=== PATIENT | male | born 1955 | race Caucasian/White ===

== ENCOUNTER 2016-11-29 15:13 | Outpatient (CLI) | payer OTHER ==
[~2016-11-29] VITALS: Ht 160 cm; Wt 68.2 kg
[2016-11-29 15:25] VITALS: Ht 160 cm; Wt 68.2 kg
[2016-11-29] MEDS ORDERED: METF500T4 PO (15:25)
[2016-11-29] MEDS ORDERED: FENO145T19 PO (15:25)
[2016-11-29] MEDS ORDERED: ALLO100T PO (15:25)
[2016-11-29] MEDS ORDERED: LOSA25TA5 PO (15:25)
[2016-11-29] MEDS ORDERED: ATOR40TA68 PO (15:25)
[2016-11-29] MEDS ORDERED: ASPI-664 PO (15:25)
[2016-11-29 15:26] VITALS: BP 134/77; PULSE 79; RESP 16
--- NOTE | 2016-11-29 16:44 | CONS ---
[facility] INITIAL OUTPATIENT CONSULTATION NOTE DATE OF CONSULTATION: 11/29/2016 PLACE OF SERVICE: [facility] ASSESSMENT AND PLAN: A very pleasant 61-year-old gentleman with a few comorbidities including diabetes mellitus with higher than normal hemoglobin A1c , hypertriglyceridemia, history of diverticulosis and perhaps hiatal hernia as well as known cholelithiasis, status post relatively recent upper and lower endoscopies presenting with abdominal pain of unclear etiology. I am not seeing any surgical indications for removal of his gallbladder with given information. The location of the pain is the main reason behind my recommendation, given his normal organo-axial anatomy as seen by the abdominal ultrasound. The patient does not demonstrate infection as the main reason, but he does have a possible diverticulosis per his own report. His colonoscopy has been relatively recent but I am a bit concerned about his anemia and would certainly recommend checking his stool for occult blood and perhaps reconsidering colonoscopy if indicated by that, or if indicated by consideration by Dr. Herr since his abdominal pain is not quite explained by his presentation. I also counseled him regarding the changes in his lifestyle and ways to achieve those (approximately 15 minutes spent in counseling time) including institution of consistent exercise per day as well as further refinement in choice of calories and monitoring and treatment of his diabetes. To start with, a CT scan of the abdomen and pelvis with IV and oral contrast would be indicated and I am hopeful that through your office we can check for occult blood in the stool and possible consultation with Dr. Herr or a correctional officer lieutenant who would consider repeat endoscopy if they felt it was indicated. I explained all this to the patient and his and answered all their questions to the best of my ability. I believe that the patient and his appeared to understand and agreed with the plans. With above assessment I have recommended the followin. CT scan of abdomen and pelvis with IV and oral contrast. 2. Consideration for gastroenterology consultation. 3. Consideration for upper and lower endoscopy if indicated by above. 4. Healthy changes in lifestyle, with the goal of getting the BMI between 18 to 24 as well as tighter control on diabetes with the goal of decreasing his hemoglobin A1c levels. 5. If further concern for gallbladder, to then perform a HIDA scan. 6. Evaluation of possible hiatal hernia and diverticular disease with the above -mentioned CT scan. 7. Follow up with us in about 2 to 3 weeks after above has been done in order for further planning. Thank you again for allowing us to participate in the care of this very pleasant gentleman and his wonderful family. If there are any questions, please call me at [phone]. TOTAL VISIT TIME: Forty-five minutes, of which more than half was spent in face -to-face discussion with the patient, discussions with his , as well as coordination of care between multiple physicians and providers. UPDATED CLINICAL SUMMARY: A very pleasant 61-year-old gentleman with a few comorbid issues including diabetes mellitus with latest hemoglobin A1c of 7.4, dated 11/15/2016, BMI of 26.6 and left upper quadrant abdominal pain for about a year, presenting for evaluation and management. COMORBIDITIES. 1. BMI 26.6. 2. Diabetes mellitus with hemoglobin A1c 7.4. 3. Anemia with white blood cell count 13.0 on 11/15/2016. 4. Cholelithiasis as seen on ultrasound of the abdomen 11/20/2016 without any evidence of acute cholecystitis or biliary ductal dilatation. 5. History of diverticulosis. 6. Status post colonoscopy 2014. 7. Status post upper and lower endoscopy 2011 (both with Dr. Herr). 3. Hypertriglyceridemia, (176 on 11/15/2016). Dear Dr. Butts, Thank you again for allowing us to participate in the care of Mr. Erik Ha and his wonderful family. HISTORY OF PRESENT ILLNESS: A very pleasant 61-year-old gentleman with above- mentioned comorbidities who presented for evaluation and management of abdominal pain that he describes as a chronic dull type of pain in the left upper quadrant primarily which is exacerbated by food and lasts approximately an hour after onset. It does not appear to be worsened by movement, but when he presses on his left costochondral margin, he can reproduce some of the pain. No prior history of trauma or car accidents that he remembers. No changes in appetite and in fact, has had increased oral intake per his . He reports a small decrease in the amount of stool that he has, but no blood and no change in caliber. No nausea or vomiting. He mentioned a "hernia" mentioned to him after his upper endoscopy by Dr. Herr. (? hiatal hernia), but no specific symptoms related to reflux or heartburn. No prior cardiopulmonary disease. ALLERGIES: NO KNOWN DRUG ALLERGIES. MEDICATIONS: 1. Allopurinol. 2. Aspirin. 3. Atorvastatin. 4. Fenofibrate. 5. Losartan. 6. Glucophage. SOCIAL HISTORY: The patient lives with his family and they have 3 children together and no grandchildren. 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 No significant smoking, no major drinking and no intravenous drug use reported. FAMILY HISTORY: Patient's sister is a breast cancer survivor in her 70s, was the diagnosis. No other major medical, surgical or oncologic problems reported in the family. REVIEW OF SYSTEMS: Other than the above-mentioned, there are no other pertinent positives or pertinent negatives in a complete 14-point review of systems. PHYSICAL EXAMINATION: GENERAL: The patient appears to be a very pleasant [place] gentleman of non- descent, appearing stated age, sitting in a chair comfortably and in no acute distress. BMI 26.6. VITAL SIGNS: Temperature 97.9, blood pressure 134/77, pulse 79, respiratory rate 16, pulse oximetry 96% on room air. HEENT: Normocephalic and atraumatic. Extraocular muscles and hearing are grossly intact bilaterally and symmetrically. Sclerae are nonicteric. Oral cavity is clear; oral mucosa appeared to be pink and moist. Dentition: fair. NECK: Supple. There is no lymphadenopathy or JVD. There is no submental, submandibular or supraclavicular lymphadenopathy. CHEST: Rises symmetrically with each breath; patient is breathing comfortably. There are no audible wheezes, rales or rhonchi on the gross exam. HEART: Pulse is regular and palpable on the right wrist. Capillary refill was normal. Carotid pulses are palpable bilaterally and symmetrically in the neck. EXTREMITIES: Lower extremities contain no pitting edema around the ankles bilaterally and symmetrically. ABDOMEN: Somewhat protuberant, but soft and nondistended. There are no peritoneal signs or guarding. There is no tenderness to palpation in the right upper quadrant. Specific attention to the left upper quadrant also could not elicit any tenderness to palpation. There are no masses, organomegaly, caput medusae and/or engorged subcutaneous veins. No peritoneal signs or guarding. SKIN: Appears to be pink and feels warm to touch. NEUROLOGIC: Awake, alert, and follows commands appropriately. LABORATORY VALUES: Dated 11/15/2016 showed normal CBC, with the exception of hemoglobin of 13. Platelet count 233. PSA 1.3, albumin 4.7. Liver function and injury parameters are all normal. Other pertinent labs were reviewed above. IMAGING: Reviewed above and personally reviewed by me, and I agree in general with their overall reported findings. Dictated By: DEANNA MADDEN/DYAN Conf#: [id number] DID#: [id number] MTDD
== END 2016-11-29 16:14 | disposition home or self-care (01) ==
LOC: HPC 15:13
PROVIDERS: ATTEND Transplant Surgery
DX: K80.20 Calculus of gallbladder without cholecystitis without obstruction (principal); E78.1 Pure hyperglyceridemia; E11.9 Type 2 diabetes mellitus without complications; Z79.82 Long term (current) use of aspirin; Z80.3 Family history of malignant neoplasm of breast
CPT/HCPCS: G0463